=== PATIENT | female | born 1960 | race Caucasian/White ===

== ENCOUNTER 2022-03-12 19:46 | Emergency (ER) | payer MEDICARE, OTHER ==
[~2022-03-12] VITALS: Ht 180.3 cm; Wt 272.2 kg
[2022-03-12] MEDS ORDERED: ELIQUIS5 M2 PO (20:15)
[2022-03-12] MEDS ORDERED: ASPI81CH PO (20:15)
[2022-03-12] MEDS ORDERED: ACET500 PO (20:15)
[2022-03-12] MEDS ORDERED: BUSP10 PO (20:23)
[2022-03-12] MEDS ORDERED: BUPR75 PO (20:23)
[2022-03-12] MEDS ORDERED: ESCI20 PO (20:23)
[2022-03-12] MEDS ORDERED: CEPHALEXIN125 MG/5 M PO (20:23)
[2022-03-12] MEDS ORDERED: FURO40 PO (20:24)
[2022-03-12] MEDS ORDERED: GABA100 PO (20:24)
[2022-03-12] MEDS ORDERED: FENO67 (20:24)
[2022-03-12] MEDS ORDERED: Lovastatin20 MG PO (20:25)
[2022-03-12] MEDS ORDERED: MECL12.5 PO (20:25)
[2022-03-12] MEDS ORDERED: POTA10T PO (20:25)
[2022-03-12] MEDS ORDERED: METO100ER PO (20:26)
[2022-03-12] MEDS ORDERED: MELO7.5 PO (20:26)
[2022-03-12] MEDS ORDERED: RIZATRIPTAN10 MG SL (20:27)
[2022-03-12] MEDS ORDERED: ALDACTONE25 MG PO (20:27)
[2022-03-12 20:44] LABS: BASOPHILS ABSOLUTE AUTO 0.03 K/mm3 (0.00-0.23); BASOPHILS PERCENT AUTO 0 % (0-2); EOSINOPHILS ABSOLUTE AUTO 0.36 K/mm3 (0.00-0.68); EOSINOPHILS PERCENT AUTO 4 % (0-6); Hematocrit 40.2 % (33.0-51.0); Hemoglobin 12.2 g/dL (11.5-16.0); IMMATURE GRAN ABSOLUTE AUTO 0.04 K/mm3 (0.00-0.10); IMMATURE GRAN PERCENT AUTO 1 % (0-1); LYMPHOCYTES ABSOLUTE AUTO 0.42 K/mm3 (0.84-5.20); LYMPHOCYTES PERCENT AUTO 5 % (21-46); MONOCYTES ABSOLUTE AUTO 0.31 K/mm3 (0.16-1.47); MONOCYTES PERCENT AUTO 4 % (4-13); Mean Corpuscular HGB 26.2 pg (26.0-34.0); Mean Corpuscular HGB Conc 30.3 g/dL (31.5-36.5); Mean Corpuscular Volume 86 fL (80-100); Mean Platelet Volume 10.4 fL (9.1-12.4); NEUTROPHILS ABSOLUTE AUTO 7.43 K/mm3 (1.96-9.15); NEUTROPHILS PERCENT AUTO 87 % (41-73); Platelet Count 219 K/mm3 (150-400); RDW Coefficient Variation 16.6 % (11.7-14.2); RDW Standard Deviation 52.1 fL (35.1-46.3); Red Blood Cell Count 4.66 M/mm3 (3.80-5.20); White Blood Cell Count 8.59 K/mm3 (4.00-11.30)
[2022-03-12 20:56] LABS: Albumin, Blood 3.7 g/dL (3.4-5.0); Albumin/Globulin Ratio 0.8 (0.8-1.8); Bilirubin, Total 0.7 mg/dL (0.1-1.0); Bun/Creatinine Ratio 27.2 (12.0-20.0); Calcium, Blood 9.3 mg/dL (8.5-10.1); Creatinine, Blood 1.62 mg/dL (0.40-1.00); Globulin, Blood 4.8 g/dL (2.2-4.0); Potassium, Blood 4.2 mmol/L (3.5-5.5); Total Protein, Blood 8.5 g/dL (6.4-8.2)
[2022-03-13 01:24] LABS: Adenovirus F 40/41 Not Detected (NOT DETECT); Astrovirus Not Detected (NOT DETECT); Campylobacter Sp Not Detected (NOT DETECT); Cryptosporidium Not Detected (NOT DETECT); Cyclospora Cayetanensis Not Detected (NOT DETECT); E. Coli O157 Not Detected (NOT DETECT); Entamoeba Histolytica Not Detected (NOT DETECT); Enteroaggregative E. coli-EAEC Not Detected (NOT DETECT); Enteropathogenic E. coli-EPEC Not Detected (NOT DETECT); Enterotoxigenic E. coli-ETEC Not Detected (NOT DETECT); Giardia Lamblia Not Detected (NOT DETECT); Norovirus GI/GII Detected (NOT DETECT); Plesiomonas Shigelloides Not Detected (NOT DETECT); Rotavirus A Not Detected (NOT DETECT); Salmonella Sp Not Detected (NOT DETECT); Sapovirus Not Detected (NOT DETECT); Shiga Toxin-prod E. coli-STEC Not Detected (NOT DETECT); Shigella/Enteroin E. coli-EIEC Not Detected (NOT DETECT); Vibrio Cholerae Not Detected (NOT DETECT); Vibrio Sp Not Detected (NOT DETECT); Yersinia Enterocolitica Not Detected (NOT DETECT)
[2022-03-13] MEDS ORDERED: ONDA4ODT MM (01:42)
[2022-03-13] MEDS ORDERED: LOPE2C PO (01:42)
== END 2022-03-13 03:34 | disposition home or self-care (01) ==
LOC: ER 19:46
PROVIDERS: Emergency Medicine; Student in an Organized Health Care Education/Training Program
DX: A08.11 Acute gastroenteropathy due to Norwalk agent (principal); Z88.2 Allergy status to sulfonamides; Z88.1 Allergy status to other antibiotic agents; Z79.899 Other long term (current) drug therapy; Z79.01 Long term (current) use of anticoagulants; Z79.82 Long term (current) use of aspirin
CPT/HCPCS: 36415; 80053; 83690; 85025; 87507; 93005; 93010; A9270; J1170; J2405; J7030

== ENCOUNTER → 2022-08-12 | Outpatient (CLI) | payer MEDICARE, OTHER ==
[~2022-08-12] MED LIST: ACET500 PO; ALDACTONE25 MG PO; ASPI81CH PO; BUPR75 PO; BUSP10 PO; CEPHALEXIN125 MG/5 M PO; ELIQUIS5 M2 PO; ESCI20 PO; FENO67; FURO40 PO; GABA100 PO; LOPE2C PO; Lovastatin20 MG PO; MECL12.5 PO; MELO7.5 PO; METO100ER PO; ONDA4ODT MM; POTA10T PO; RIZATRIPTAN10 MG SL
[2022-08-12 11:18] LABS: Appearance, Urine Hazy (Clear); Bilirubin, Urine Neg (Neg); Blood, Urine 4+ (Neg); Color, Urine Yellow (P-Yellow); Glucose Qualitative, Urine Neg (Neg); Ketones, Urine Neg (Neg); Leukocyte Esterase, Urine 3+ (Neg); Nitrite, Urine Pos (Neg); Protein, Urine Neg (Neg); Urobilinogen, Urine NORM (Normal); pH, Urine 6.5 (5.0-8.0)
[2022-08-12 12:51] LABS: Bacteria Many /hpf; Squamous Epithelial Cells Mod /hpf (Few)
== END | disposition home or self-care (01) ==
LOC: LAB RH 09:00 → EDSTATUS 15:01
PROVIDERS: Internal Medicine
DX: I12.9 Hypertensive chronic kidney disease with stage 1 through stage 4 chronic kidney disease, or unspecified chronic kidney disease (principal); N18.9 Chronic kidney disease, unspecified; I89.0 Lymphedema, not elsewhere classified; Z74.1 Need for assistance with personal care
CPT/HCPCS: 81001; 87086

== ENCOUNTER → 2022-08-14 | Outpatient (CLI) | payer MEDICARE, OTHER ==
[2022-08-14 13:13] LABS: Source, Urine Straight Cath
[2022-08-14 14:47] LABS: Appearance, Urine Cloudy (Clear); Bilirubin, Urine Neg (Neg); Blood, Urine 4+ (Neg); Glucose Qualitative, Urine Neg (Neg); Ketones, Urine Neg (Neg); Leukocyte Esterase, Urine 3+ (Neg); Nitrite, Urine Neg (Neg); Protein, Urine 2+ (Neg); Urobilinogen, Urine NORM (Normal)
[2022-08-14 15:09] LABS: Color, Urine Pale Yellow (P-Yellow)
[2022-08-14 15:11] LABS: Bacteria Many /hpf; Mucus Mod (0-Heavy); Squamous Epithelial Cells Few /hpf (Few); White Blood Cells, Urine TNTC /hpf (0-5)
[2022-08-14 15:12] LABS: Amorphous Mod (0-Heavy); Triple Phosphate Crystals Rare /hpf
== END | disposition home or self-care (01) ==
LOC: LAB RH 13:12 → EDSTATUS 15:02
PROVIDERS: Internal Medicine
DX: N93.9 Abnormal uterine and vaginal bleeding, unspecified (principal)
CPT/HCPCS: 81001; 87086

== ENCOUNTER 2025-04-04 11:36 | Inpatient (IN) | payer MEDICARE, OTHER ==
[~2025-04-04] VITALS: Ht 180.3 cm; Wt 278.5 kg
[2025-04-04] MEDS ORDERED: Morphine Sulfate 4 MG/1 ML Injection IV ONE ×2 (12:20→16:20)
[2025-04-04 13:46] LABS: BASOPHILS ABSOLUTE AUTO 0.09 K/mm3 (0.00-0.23); BASOPHILS PERCENT AUTO 1 % (0-2); EOSINOPHILS ABSOLUTE AUTO 0.34 K/mm3 (0.00-0.68); EOSINOPHILS PERCENT AUTO 3 % (0-6); Hematocrit 37.8 % (33.0-51.0); Hemoglobin 11.9 g/dL (11.5-16.0); IMMATURE GRAN ABSOLUTE AUTO 0.13 K/mm3 (0.00-0.10); IMMATURE GRAN PERCENT AUTO 1 % (0-1); LYMPHOCYTES ABSOLUTE AUTO 2.27 K/mm3 (0.84-5.20); LYMPHOCYTES PERCENT AUTO 21 % (21-46); MONOCYTES ABSOLUTE AUTO 0.66 K/mm3 (0.16-1.47); MONOCYTES PERCENT AUTO 6 % (4-13); Mean Corpuscular HGB Conc 31.5 g/dL (31.5-36.5); Mean Corpuscular Volume 83 fL (80-100); NEUTROPHILS ABSOLUTE AUTO 7.28 K/mm3 (1.96-9.15); NEUTROPHILS PERCENT AUTO 68 % (41-73); NRBC ABSOLUTE 0.00 K/mm3 (0.00-0.02); NRBC Auto 0.0 /100 WBC (0.0-0.2); Platelet Count 365 K/mm3 (150-400); RDW Coefficient Variation 16.9 % (11.7-14.2); RDW Standard Deviation 50.8 fL (35.1-46.3)
[2025-04-04 13:57] LABS: Alanine Aminotransfer (ALT/SGP 16.0 U/L (12-78); Albumin/Globulin Ratio 0.6 (0.8-1.8); Anion Gap 10.0 mmol/L (3-11); Aspartate Aminotrans (AST/SGOT 23.0 U/L (12-37); Bilirubin, Total 0.4 mg/dL (0.1-1.0); Blood Urea Nitrogen 27.0 mg/dL (8-24); CO2, Blood 20.0 mmol/L (21-32); Calcium, Blood 8.8 mg/dL (8.5-10.1); Chloride, Blood 104.0 mmol/L (98-108); Creatinine, Blood 1.11 mg/dL (0.40-1.00); Globulin, Blood 4.9 g/dL (2.2-4.0); Glucose, Blood 107.0 mg/dL (70-99); Potassium, Blood 5.1 mmol/L (3.5-5.5); Sodium, Blood 129.0 mmol/L (136-145); Total Protein, Blood 7.6 g/dL (6.4-8.2)
[2025-04-04 14:02] LABS: Albumin, Blood 2.5 g/dL (3.4-5.0)
[2025-04-04] MEDS ORDERED: NS 1,000 ML IV SCH ×2 (14:10→17:30)
[2025-04-04] MEDS ORDERED: CefTRIAXone Sodium 2,000 MG in NS 100 ML IV ONE (14:15)
[2025-04-04] MEDS ORDERED: Ondansetron HCl 2 MG / ML 2ML Vial IV PRN (17:30)
[2025-04-04] MEDS ORDERED: FLU VACC TS2025-26(6MOS UP)/PF 45 MCG/0.5 ML SYRINGE IM SCH (17:30)
[2025-04-04] MEDS ORDERED: Clindamycin 900mg in D5W 50ML 50 ML IV SCH (18:00)
[2025-04-04] MEDS ORDERED: NS 1,000 ML IV ONE (18:00)
[2025-04-04 19:28] LABS: pH Blood Venous 7.33 (7.34-7.37)
[2025-04-04] MEDS ORDERED: Lactobacil 2-S.Thermo-Bifido 1 1 Cap PO SCH (21:00)
[2025-04-04 21:04] VITALS: BP 102/60
[2025-04-04] MEDS ORDERED: JARDIANCE10 MG PO (23:04)
[2025-04-04] MEDS ORDERED: TRAZ50 PO (23:05)
[2025-04-04] MEDS ORDERED: LISI5 PO (23:10)
[2025-04-04] MEDS ORDERED: MOUNJARO15 MG/0.5 SC (23:11)
[2025-04-05 03:48] VITALS: BP 107/70
[2025-04-05 04:41] LABS: Hematocrit 35.6 % (33.0-51.0); Hemoglobin 11.1 g/dL (11.5-16.0); Mean Corpuscular HGB Conc 31.2 g/dL (31.5-36.5); Mean Corpuscular Volume 85 fL (80-100); NRBC ABSOLUTE 0.00 K/mm3 (0.00-0.02); NRBC Auto 0.0 /100 WBC (0.0-0.2); Platelet Count 342 K/mm3 (150-400); RDW Coefficient Variation 17.2 % (11.7-14.2); RDW Standard Deviation 52.2 fL (35.1-46.3)
[2025-04-05 05:02] LABS: Anion Gap 8.0 mmol/L (3-11); Blood Urea Nitrogen 29.0 mg/dL (8-24); CO2, Blood 25.0 mmol/L (21-32); Calcium, Blood 8.4 mg/dL (8.5-10.1); Chloride, Blood 104.0 mmol/L (98-108); Creatinine, Blood 1.29 mg/dL (0.40-1.00); Glucose, Blood 157.0 mg/dL (70-99); Potassium, Blood 4.2 mmol/L (3.5-5.5); Sodium, Blood 133.0 mmol/L (136-145)
[2025-04-05 07:10] VITALS: BP 114/59
[2025-04-05 10:28] VITALS: BP 130/79
[2025-04-05 10:58] LABS: Source, Urine Foley catheter
[2025-04-05 11:06] LABS: Bilirubin, Urine Neg (Neg); Glucose Qualitative, Urine 3+ (Neg); Ketones, Urine Neg (Neg); Leukocyte Esterase, Urine 3+ (Neg); Protein, Urine 3+ (Neg); Specific Gravity, Urine 1.020 (1.003-1.022); Urobilinogen, Urine NORM (Normal)
[2025-04-05 11:22] LABS: Color, Urine Pale Yellow (P-Yellow)
[2025-04-05 11:26] LABS: Red Blood Cells, Urine 50-100 /hpf (0-2); White Blood Cells, Urine 50-100 /hpf (0-5)
[2025-04-05 15:00] VITALS: BP 132/57
[2025-04-05] MEDS ORDERED: CALCIUM 600 +1 EA11 PO (16:50)
[2025-04-05] MEDS ORDERED: SULTRIDS PO (16:51)
[2025-04-05] MEDS ORDERED: PREG50 PO (16:52)
[2025-04-05] MEDS ORDERED: OXYB5 PO (16:53)
[2025-04-05] MEDS ORDERED: Acetaminophen650 M1 PO (16:55)
[2025-04-05] MEDS ORDERED: LOPE2C PO (16:56)
[2025-04-05] MEDS ORDERED: LORA10ER PO (16:56)
[2025-04-05] MEDS ORDERED: RENACIDIN IR (17:00)
[2025-04-05] MEDS ORDERED: NS 250 ML IV PRN (17:50)
[2025-04-05 19:34] VITALS: BP 99/62
--- NOTE | 2025-04-05 19:50 | NUR ---
SHIFT SUMMARY- PT WAS ADMITTED THROUGH THE ER LAST NIGHT. PT HAD A VERY LARGE LIQUID AND FORMED GRITTY BROWN STOOL. THE PT HAD A FULL BED BATH WITH LINNEN CHANGE, DRESSING WAS CHANGED ON THE DRAINING PACKED WOUND ON THE LEFT HIP. DE JESUS WAS NOTED TO BE DISCOLORED AND HAVE THICK MILKY FLUID IN IT. THE DE JESUS WAS REPLACED WITH A NEW ONE AND A UA WAS SENT TO THE LAB. PT IS IN A BARIATRIC BED, CPAP MASK IS IN PLACE. IV ACCESS WAS VERY POSSITIONAL, PG WAS PLACED FOR THE PT TO RECIEVE IV ABX. WOUND CARE ORDERS RECIEVED FROM DR AT THE BEDSIDE ON ROUNDS THIS MORNING. PT DRESSING TO BE CHANGED DAILY OR PRN WHEN SOILED. THE EXTERIOR DRESSING IS EXUDRY AND FABRIC TAPE. THE WOUND IS PACKED WITH IODOFORM IN THE ED. PER DR SAINZ THE PACKING SHOULD BE REMOVED AND REPLACED EVERY 72 HOURS. PASSED ON IN BEDSIDE REPORT TO NIGHT RN. PT IN BED CALL LIGHT IN REACH NO S&S OF DISTRESS NOTED.
[2025-04-06 03:59] VITALS: BP 100/67
--- NOTE | 2025-04-06 06:22 | NUR ---
SHIFT SUMMARY: Pt admitted for cellulitis and is a DNR. is alert and able to make needs known. ADLs have been 2p for ADLs but did not get out of bed. When asked about pain she stated that she had some pain but was manageable. LN reinforced if it started to bother her to say something. She agreed. Power glide to right upper is patent with dressing that is CDI. folley in place and draining clear todd urine. Dressing to left hip changed several times due to excessive drainage.
[2025-04-06 07:28] VITALS: BP 122/67
[2025-04-06] MEDS ORDERED: Ciprofloxacin 400MG/D5 200ML 200 ML IV STA (12:44)
--- NOTE | 2025-04-06 16:16 | NUR ---
Shift Summary Ms Khan is orientated x4, upbeat, positive conversation and interaction. She is on bedrest on specialty hospital bed. She has some redness and skin cracks in some of her skin folds which were cleansed and moisturised. She was encouraged to reposition with assistance for pressure relief and skin care. She is reluctant to turn and has been encouraged and educated today. She is on continuous pulse ox in the 90s on 2L nc, attempted to wean to room air unsuccessful. She has 5L bleedthough with CPAP and uses CPAP intermittantly thoughout the day. She c/o 8/10 back pain, medicated once with oxy. She said her pain is tolerable. She denies feeling SOB. Chronic samuel catheter in place draining yellow urine with sediment. Wound dressing to left hip has been changed once so far this shift with moderate drainage. Bed low, call light in reach.
[2025-04-06 16:28] VITALS: BP 98/64
[2025-04-06 19:31] VITALS: BP 106/66
[2025-04-06] MEDS ORDERED: Ciprofloxacin 400MG/D5 200ML 200 ML IV SCH (22:00)
[2025-04-07 04:12] VITALS: BP 115/68
--- NOTE | 2025-04-07 06:44 | NUR ---
SENIOR TECHNICAL SPECIALIST SUMMARY PT A&OX4, VSS. ABLE TO COMMUNICATE NEEDS APPROPRIATELY. PT HAS BEEN ASLEEP FOR MOST OF THE NIGHT. CHEST RISE/RESPIRATIONS NOTED. ON 2L NC WHEN AWAKE, 5L BLED INTO CPAP WHEN ASLEEP. O2 SATS >=94% ON CONT PULSE OX W/ SPOT CHECKS. EXUDRY BECAME SOILED WITH BM AND WAS CHANGED. EXUDRY REMAINS CDI. OXYCODONE ADMIN X 1 FOR L THIGH PAIN W/ GOOD EFFECT. BED RAILS UP X 2, BED IN LOWEST POSITION, BED WHEELS LOCKED, PERSONAL BELONGINGS AND CALL LIGHT WITHIN REACH FOR SAFETY.
[2025-04-07 07:39] VITALS: BP 91/53
[2025-04-07 08:05] VITALS: BP 111/73
[2025-04-07] MEDS ORDERED: Miconazole Nitrate 2% 85 GM PWD TOP PRN ×2 (08:05)
[2025-04-07] MEDS ORDERED: Meropenem 2,000 MG in NS 250 ML IV SCH (09:36)
--- NOTE | 2025-04-07 14:30 | NUR ---
RN NOTE MS CARBONE HAS GENERAL HIP, ANKLE, KNEE PAINS AND HEADACHE, TREATED WITH OXY WITH SOME RELIEF. LEFT HIP WOUND CLEANSED AND REPACKED TODAY. SHE HAD MINIMAL SENSATION AT SITE, FELT SOME INTERNAL PRESSURE, NOT PARTICULARLY PAINFUL PER PT. AFTER OLD PACKING WAS REMOVED THERE WAS A MODERATE AMOUNT OF PINK CLEAR DRAINAGE, SOAKED THROUGH 2 PACKS OF GAUZE. IT WAS REPACKED WITH 4 YARDS OF IODAFORM PACKING TAPE.
--- NOTE | 2025-04-07 16:44 | NUR ---
Shift Summary Ms Khan has been on room air all shift. She denies feeling SOB. She does have intermitant headache and general pains, treated with oxy twice. Wound repacked with moderate clear pink and bloody drainage. Skin care, cleansed, lotion applied, nystatin to redenned areas. Skin folds have cracks that were cleansed and treated. Whaley to bedside dainage with good UOP. On contact isolation for ESBL. Encouraged to reposition frequently. Bed low, call light in reach and used appropriately.
[2025-04-07 17:53] VITALS: BP 105/63
[2025-04-07 20:05] VITALS: BP 110/59
[2025-04-08 04:14] VITALS: BP 93/63
[2025-04-08 08:11] VITALS: BP 112/62
[2025-04-08 12:25] LABS: Source, Urine Foley catheter
[2025-04-08 12:28] LABS: Bilirubin, Urine Neg (Neg); Color, Urine Yellow (P-Yellow); Glucose Qualitative, Urine Neg (Neg); Ketones, Urine Neg (Neg); Leukocyte Esterase, Urine 3+ (Neg); Protein, Urine 1+ (Neg); Specific Gravity, Urine 1.015 (1.003-1.022); Urobilinogen, Urine NORM (Normal)
[2025-04-08 12:36] LABS: Red Blood Cells, Urine TNTC /hpf (0-2); White Blood Cells, Urine TNTC /hpf (0-5)
[2025-04-08 14:39] VITALS: BP 112/76
--- NOTE | 2025-04-08 18:50 | NUR ---
SHIFT SUMMARY PT A&OX4. PT ADMITTED DUE TO CELLULITIS. PT ON CONTACT ISOLATION FOR ESBL IN URINE. PT REPORTS NO SOB, CHEST PAIN, PT REPORTS PAIN IN L THIGH, PAIN MANAGED PER EMAR, THIS RN CHANGED DRESSING ON L THIGH. THIS RN REMOVED OLD DRESSING USED WOUND CARE PLANT CONTROL AIDE W 4X4 GAUZE TO CLEAN AREA WHERE OLD DRESSING WAS, PLACED ABD PAD WITH TAPE TO ATTACH. DR. SAINZ ORDERED URINE COLLECTION SAMPLE TODAY, URINE COLLECTED VIA STERILE TECHNIQUE FROM DE JESUS WITH SYRINGE. PT HAS DE JESUS, DE JESUS DRAINING ADEQUATE WITH NO DEPENDENT LOOPS. PLAN IS POSSIBLE OUTPATIENT ANTIBIOTICS PER DR. SAINZ. PT IS A LIFT PT. PT TURNED Q2. PT HAD BM TODAY. PT TAKES MEDS WHOLE W WATER. CONT PULSE OX ON, SPO2 IS 96% ON ROOM AIR. PT IN BED, BED IN LOWEST POSITION, BED LOCKED, CALL LIGHT IN REACH.
[2025-04-08 19:56] VITALS: BP 116/66
[2025-04-09 04:49] VITALS: BP 123/97
[2025-04-09 04:56] LABS: BASOPHILS ABSOLUTE AUTO 0.07 K/mm3 (0.00-0.23); BASOPHILS PERCENT AUTO 1 % (0-2); EOSINOPHILS ABSOLUTE AUTO 0.32 K/mm3 (0.00-0.68); EOSINOPHILS PERCENT AUTO 4 % (0-6); Hematocrit 34.7 % (33.0-51.0); Hemoglobin 10.8 g/dL (11.5-16.0); IMMATURE GRAN ABSOLUTE AUTO 0.10 K/mm3 (0.00-0.10); IMMATURE GRAN PERCENT AUTO 1 % (0-1); LYMPHOCYTES ABSOLUTE AUTO 1.81 K/mm3 (0.84-5.20); LYMPHOCYTES PERCENT AUTO 24 % (21-46); MONOCYTES ABSOLUTE AUTO 0.70 K/mm3 (0.16-1.47); MONOCYTES PERCENT AUTO 9 % (4-13); Mean Corpuscular HGB Conc 31.1 g/dL (31.5-36.5); Mean Corpuscular Volume 85 fL (80-100); NEUTROPHILS ABSOLUTE AUTO 4.56 K/mm3 (1.96-9.15); NEUTROPHILS PERCENT AUTO 60 % (41-73); NRBC ABSOLUTE 0.00 K/mm3 (0.00-0.02); NRBC Auto 0.0 /100 WBC (0.0-0.2); Platelet Count 294 K/mm3 (150-400); RDW Coefficient Variation 17.7 % (11.7-14.2); RDW Standard Deviation 53.8 fL (35.1-46.3)
[2025-04-09 05:27] LABS: Anion Gap 7.0 mmol/L (3-11); Blood Urea Nitrogen 28.0 mg/dL (8-24); CO2, Blood 26.0 mmol/L (21-32); Calcium, Blood 8.8 mg/dL (8.5-10.1); Chloride, Blood 105.0 mmol/L (98-108); Creatinine, Blood 1.17 mg/dL (0.40-1.00); Glucose, Blood 146.0 mg/dL (70-99); Potassium, Blood 3.9 mmol/L (3.5-5.5); Sodium, Blood 134.0 mmol/L (136-145)
--- NOTE | 2025-04-09 05:52 | NUR ---
SHIFT SUMMARY: PT AOX4, THOUGH IS ONLY ABLE TO ASSIST IN ROLLS. PT TOLERATING MEDICATIONS WELL. DID HAVE A LOT OF LOOSE STOOL THIS MORNING. PAIN MEDICATED PER EMR. DRESSING WAS VERY SATURATED UPON INSPECTION. WHILE CHANGING DRESSING, WOUND DRAING A LOT OF SEROSANGUINOUS FLUID, STOPPING WITH SOME PRESSURE. SOAKED THROUGH AN ADDITIONAL DRESSING, EXUDRY AND PRESSURE TAPE PLACED ON TOP WHICH HAS BEEN HOLDING FOR NOW. CHARGE NURSE NOTIFIED. PT IN BED RESTING, BED IN LOWEST POSITION, CALL LIGHT IN REACH. CONTINUING CARE.
[2025-04-09 07:43] VITALS: BP 123/80
[2025-04-09 15:37] VITALS: BP 103/86
--- NOTE | 2025-04-09 18:03 | NUR ---
SHIFT SUMMARY- PT ALERT AND ORIENTED. SHE IS BEDBOUND AT BASELINE. SHE IS ON A BARIATRIC AIR BED TO PREVENT BREAKDOWN OF HER SKIN. PT HAD A VERY LARGE LIQUID/ SOLID STOOL. SHE WAS ASSISTED BY THREE STAFF TO CLEAN AND CATH CARE WAS COMPLETED AT THAT TIME. PT HAD HER DRESSING CHANGED LAST NIGHT AND IT HAS BEEN C/D/I T/O THE DAY TODAY. WILL PASS ON IN BEDSIDE REPORT TO NIGHT RN. PT HAS A PG IN THE THELMA THAT IS SL AFTER HER ABX. CHRONIC DE JESUS CATH WAS CHANGED ON ADMIT. PT APPEARS TO BE FEELING BETTER THAN WHEN SHE FIRST ARRIVED ON MED FLOOR AND THE REDNESS SURROUNDING HER WOUND HAS REDUCED GREATLY. UNCERTAIN OF THE PLAN FOR DISCHARGE.
--- NOTE | 2025-04-09 19:42 | NUR ---
NURSING NOTE: AFTER BEING ROLLED FOR A CHANGE, PT WOUND STARTED DRAINING PROFUSELY MEGAN BLOOD AND SEROUS FLUID PER DAYSHIFT NURSE. DAY SHIFT NURSE CHANGED BANDAGE, APPLIED EXUDRY WITH PRESSURE BANDAGE. HAS STOPPED DRAINING WITH PRESSSURE BANDAGE ATTACHED. PT DENIES FEELING ANY DIFFERENT. PT IN BED RESTNIG, BED IN LOWEST POSITION, CALL LIGHT IN REACH. CONTINUING CARE.
[2025-04-09 19:47] VITALS: BP 135/77
[2025-04-10 04:35] LABS: BASOPHILS ABSOLUTE AUTO 0.09 K/mm3 (0.00-0.23); BASOPHILS PERCENT AUTO 1 % (0-2); EOSINOPHILS ABSOLUTE AUTO 0.33 K/mm3 (0.00-0.68); EOSINOPHILS PERCENT AUTO 4 % (0-6); Hematocrit 33.2 % (33.0-51.0); Hemoglobin 10.4 g/dL (11.5-16.0); IMMATURE GRAN ABSOLUTE AUTO 0.08 K/mm3 (0.00-0.10); IMMATURE GRAN PERCENT AUTO 1 % (0-1); LYMPHOCYTES ABSOLUTE AUTO 1.97 K/mm3 (0.84-5.20); LYMPHOCYTES PERCENT AUTO 23 % (21-46); MONOCYTES ABSOLUTE AUTO 0.74 K/mm3 (0.16-1.47); MONOCYTES PERCENT AUTO 9 % (4-13); Mean Corpuscular HGB Conc 31.3 g/dL (31.5-36.5); Mean Corpuscular Volume 84 fL (80-100); NEUTROPHILS ABSOLUTE AUTO 5.41 K/mm3 (1.96-9.15); NEUTROPHILS PERCENT AUTO 63 % (41-73); NRBC ABSOLUTE 0.00 K/mm3 (0.00-0.02); NRBC Auto 0.0 /100 WBC (0.0-0.2); Platelet Count 280 K/mm3 (150-400); RDW Coefficient Variation 17.6 % (11.7-14.2); RDW Standard Deviation 53.6 fL (35.1-46.3)
[2025-04-10 04:48] VITALS: BP 124/64
[2025-04-10 05:04] LABS: Anion Gap 5.0 mmol/L (3-11); Blood Urea Nitrogen 30.0 mg/dL (8-24); CO2, Blood 29.0 mmol/L (21-32); Calcium, Blood 8.7 mg/dL (8.5-10.1); Chloride, Blood 105.0 mmol/L (98-108); Creatinine, Blood 1.16 mg/dL (0.40-1.00); Glucose, Blood 153.0 mg/dL (70-99); Potassium, Blood 4.1 mmol/L (3.5-5.5); Sodium, Blood 135.0 mmol/L (136-145)
--- NOTE | 2025-04-10 05:19 | NUR ---
SHIFT SUMMARY: PT AOX4, CALLS APPROPRIATELY AND ABLE TO MAKE NEEDS KNOWN. SEE PREVIUS NURSING NOTE ABOUT THE WOUND AT THE START OF SHIFT. PT TOLERATING MEDICATIONS WELL. COOPERATIVE IN CARE. NO ACUTE EVENTS OVERNIGHT. PT IN BED RESTING, BED IN LOWEST POSITION, CALL LIGHT IN REACH. CONTINUING CARE.
[2025-04-10 07:18] VITALS: BP 114/74
[2025-04-10 09:28] LABS: Hematocrit 33.0 % (33.0-51.0); Hemoglobin 10.3 g/dL (11.5-16.0)
[2025-04-10 10:14] LABS: Ferritin, Serum 200.0 ng/mL (8-252); Total Iron Binding Capacity 239.0 ug/dL (250-450)
--- NOTE | 2025-04-10 13:09 | NUR ---
CALLED DR KEVIN- SPOKE TO DR ON PROVIDER ROUNDS THIS AM, US ORDERED OF THE HIP. US COULD NOT SEE MUCH. CALLED TO DETERMINE THE PLAN FOR THIS PT. PER DR KEVIN THE PT IS AWAITING DR JOHNSON TO [facility] AND SEE HER. SHE MAY REQUIRE TRANSFER TO [facility] FOR FURTHER Tx.
[2025-04-10 15:10] LABS: Hematocrit 32.5 % (33.0-51.0); Hemoglobin 10.1 g/dL (11.5-16.0)
[2025-04-10 15:42] VITALS: BP 122/80
--- NOTE | 2025-04-10 16:49 | NUR ---
SHIFT SUMMARY- PT ALERT AND ORIENTED. SHE HAS HAD THREE DRESSING CHANGES TODAY D/T SATURATION. PACKING NOT CHANGED JUST THE EXUDRY ON TOP. PRESSURE DRESSING STOPS THE SATURATION, OR SLOWS IT GREATLY, BUT SOON IT IS REMOVED THE DRESSING SATURATES. AWARE. DR ORTIZ CAME TO SEE THE PT. SPOKE TO DR KEVIN AFTER HE CAME. THE PLAN IS TO TRANSFER THE PT TO A FACILITY THAT CAN PROVIDE THE SERVICES THE PT NEEDS THIS HOSPITAL DOES NOT HAVE EQUIPMENT FOR THE PT SIZE. PT IS AWARE SHE WILL LIKELY BE TRANSFERED FOR THESE SERVICES. WAITING FOR THE DOCTOR TO FIND AN ACCEPTING PROVIDER.
[2025-04-10 18:06] VITALS: BP 122/80
[2025-04-10 19:16] VITALS: BP 149/86
== END 2025-04-10 21:07 | DRG 602 ==
LOC: ER 11:36 → ERHOLD 17:25 → MEDS 17:25
PROVIDERS: Emergency Medicine; Internal Medicine; Nurse Practitioner Acute Care; Student in an Organized Health Care Education/Training Program; ADMIT Student in an Organized Health Care Education/Training Program
DX: L03.116 Cellulitis of left lower limb (principal); R53.2 Functional quadriplegia; E87.1 Hypo-osmolality and hyponatremia; Z68.45 Body mass index [BMI] 70 or greater, adult; N39.0 Urinary tract infection, site not specified; Z16.12 Extended spectrum beta lactamase (ESBL) resistance; Z66 Do not resuscitate; I12.9 Hypertensive chronic kidney disease with stage 1 through stage 4 chronic kidney disease, or unspecified chronic kidney disease; E11.22 Type 2 diabetes mellitus with diabetic chronic kidney disease; N18.31 Chronic kidney disease, stage 3a; E66.01 Morbid (severe) obesity due to excess calories; E78.5 Hyperlipidemia, unspecified; G47.33 Obstructive sleep apnea (adult) (pediatric); I48.0 Paroxysmal atrial fibrillation; F41.8 Other specified anxiety disorders; B95.61 Methicillin susceptible Staphylococcus aureus infection as the cause of diseases classified elsewhere; B96.5 Pseudomonas (aeruginosa) (mallei) (pseudomallei) as the cause of diseases classified elsewhere; D63.1 Anemia in chronic kidney disease; Z74.01 Bed confinement status; Z79.01 Long term (current) use of anticoagulants; Z88.2 Allergy status to sulfonamides; Z88.1 Allergy status to other antibiotic agents
CPT/HCPCS: 36415; 51702; 73502; 76882; 80048; 80053; 81001; 82607; 82728; 82746; 82803; 83540; 83550; 84145; 85014; 85018; 85025; 85027; 87070; 87075; 87077; 87086; 87147; 87186; 87205; 94660; 94762; 96365; 96375; 96376; 99285-25; A9270; C1751; J0696; J0744; J1580; J2185; J2270; J7030; J7050